=== PATIENT | female | born 1935 | race Caucasian/White ===

== ENCOUNTER 2018-07-21 22:21 | Emergency (ER) | payer OTHER ==
[~2018-07-21] VITALS: Ht 160 cm; Wt 53.1 kg
[~2018-07-21 22:21] MED LIST: AMLODIPINE BESY10 M1 PO; AMLODIPINE10 M1 PO; ASPIR 8181 MG PO; ASPIR-LOW81 M1 PO; ATORVASTATIN CA40 M1 PO; COL100 PO; LAC PO; LIPITOR40 MG PO; LISINOPRIL40 MG PO; MAG PO; MYL80 CH; PLETAL100 MG PO; PRILOSEC40 MG PO; ZES20 PO; ZESTRIL40 MG PO
[2018-07-21 23:51] LABS: BASOPHIL % 0.2 % (0-2); PLATELET COUNT 327 x10^3mcL (130-400)
[2018-07-21 23:54] LABS: RED CELL DISTRIBUTION WIDTH 18.2 % (11.5-14.5)
[2018-07-21 23:58] LABS: CALCIUM 9.1 mg/dL (8.5-10.1); CARBON DIOXIDE 29.8 mmol/L (21-32); CHLORIDE SERUM 104 mmol/L (98-107); CREATININE SERUM 1.5 mg/dL (0.6-1.0); GLUCOSE SERUM 128 mg/dL (74-106); SODIUM SERUM 143 mmol/L (136-145)
[2018-07-22 00:07] LABS: ALBUMIN 3.7 g/dL (3.4-5.0); ALKALINE PHOSPHATASE 98 U/L (46-116); ALT/SGPT 20 U/L (14-59); AST/SGOT 20 U/L (15-37); CHOLESTEROL 202 mg/dL (<200); CHOLESTEROL/HDL RATIO 2.7; HDL CHOLESTEROL 76 mg/dL (40-60); LIPASE 133 IU/L (73-393); TOTAL PROTEIN, SERUM 7.5 g/dL (6.4-8.2); TRIGLYCERIDES 88 mg/dL (<150)
[2018-07-22 00:26] LABS: FREE T4 1.08 ng/dL (0.76-1.46); FREE THYROXINE INDEX 4.3 ug/dL (1.4-4.5); T4(THYROXINE) 12.7 ug/dL (4.7-13.3)
[2018-07-22 00:30] LABS: T3 TOTAL 1.17 ng/mL
[2018-07-22 00:46] LABS: UA SPECIFIC GRAVITY 1.025 (1.005-1.035); microscopic required? YES; urine erythrocyte NEGATIVE (NEGATIVE)
[2018-07-22 01:34] VITALS: BP 130/59
== END 2018-07-22 01:34 | disposition home or self-care (01) ==
LOC: ED 22:21
PROVIDERS: Specialist
DX: R10.13 Epigastric pain (principal); R11.10 Vomiting, unspecified; I10 Essential (primary) hypertension; E78.00 Pure hypercholesterolemia, unspecified
CPT/HCPCS: 83880; 84439; J2405; J3010; J3490; J7030; Q0092

== ENCOUNTER 2018-11-27 00:18 | Inpatient (IN) | payer OTHER ==
[~2018-11-27] VITALS: Ht 160 cm; Wt 42.4 kg
[~2018-11-27 00:18] MED LIST changes: -AMLODIPINE BESY10 M1 PO; +NOR10 PO
--- NOTE | 2018-11-27 00:26 | NUR ---
TO ED BED 8 WITH RN EMAD FOR BEDSIDE TRIAGE.
[2018-11-27 00:32] VITALS: Ht 160 cm; Wt 42.4 kg
--- NOTE | 2018-11-27 00:38 | NUR ---
PT CAME IN FOR ABDOMINAL PAIN AND NAUSEA X 5 HOURS. PT AWAKE, ALERT, RESPIRATIONS EVEN AND UNLABORED. SAFETY PRECAUTIONS IN PLACE
[2018-11-27 01:26] LABS: BASOPHIL % 0.3 % (0-2); PLATELET COUNT 336 x10^3mcL (130-400)
--- NOTE | 2018-11-27 01:29 | NUR ---
PT TAKEN FOR SCAN BY TECH
[2018-11-27 01:31] LABS: RED CELL DISTRIBUTION WIDTH 14.6 % (11.5-14.5)
[2018-11-27 01:32] LABS: CARBON DIOXIDE 28.8 mmol/L (21-32); CHLORIDE SERUM 103 mmol/L (98-107); CREATININE SERUM 1.1 mg/dL (0.6-1.0); GLUCOSE SERUM 119 mg/dL (74-106); POTASSIUM SERUM 3.8 mmol/L (3.5-5.1); SODIUM SERUM 140 mmol/L (136-145)
[2018-11-27 01:37] LABS: ALBUMIN 3.8 g/dL (3.4-5.0); ALKALINE PHOSPHATASE 93 U/L (46-116); ALT/SGPT 24 U/L (14-59); AST/SGOT 28 U/L (15-37); BILIRUBIN TOTAL 0.95 mg/dL (0.20-1.00); LIPASE 96 IU/L (73-393); TOTAL PROTEIN, SERUM 7.9 g/dL (6.4-8.2)
--- NOTE | 2018-11-27 01:42 | NUR ---
PT PROVIDED WITH SPECIMEN CUP AND VERBALIZED FOR NEED TO PROVIDE URINE SAMPLE, PT VERBALIZES UNDERSTANDING AND AMBULATED TO RESTROOM WITH STEADY GAIT. PT AWAKE, ALERT, RESPIRATIONS EVEN AND UNLABORED. SAFETY PRECAUTIONS IN PLACE
[2018-11-27 02:27] LABS: microscopic required? NO
[2018-11-27 02:44] LABS: UA SPECIFIC GRAVITY 1.015 (1.005-1.035); urine erythrocyte NEGATIVE (NEGATIVE)
--- NOTE | 2018-11-27 02:54 | NUR ---
PT CURRENTLY RESTING WITH EYES CLOSED, RESPIRATIONS EVEN AND UNLABORED. SAFETY PRECAUTIONS IN PLACE
--- NOTE | 2018-11-27 04:17 | NUR ---
PT RESTING WITH EYES CLOSED, RESPIRATIONS EVEN AND UNLABORED. SAFETY PRECAUTIONS IN PLACE
[2018-11-27 05:07] LABS: MAGNESIUM 2.3 mg/dL (1.8-2.4)
[2018-11-27 05:11] LABS: CHOLESTEROL/HDL RATIO 2.7
[2018-11-27 05:12] LABS: T3 TOTAL 1.24 ng/mL
[2018-11-27 05:15] LABS: FREE T4 1.18 ng/dL (0.76-1.46); FREE THYROXINE INDEX 3.8 ug/dL (1.4-4.5); T4(THYROXINE) 11.4 ug/dL (4.7-13.3)
[2018-11-27] MEDS ORDERED: NOR10 PO (05:15)
--- NOTE | 2018-11-27 05:18 | NUR ---
REPORT GIVEN TO EDEN WILLAMS, ALL QUESTIONS AND CONCERNS WERE ADDRESSED.
--- NOTE | 2018-11-27 05:30 | NUR ---
RECEIVED PT FROM ER VIA GRISELDA ACCOMPANIED WITH NURSE AND EMT, PT SEEN, ALERT AND ORIENTED, DENIES HEADACHE OR DIZZINESS, TAJIK SPEAKING ONLY, BREATHING EVEN AND UNLABORED, LUNG SOUNDS CLEAR, ON ROOM AIR WITH SPO2:98%, NO RESP DISTRESS NOTED, DENIES CHEST PAIN, SL TO RAC, PULSES PALPABLE, NO EDEMA NOTED, AMBULATORY WITH STEADY GAIT, ABD DISTENDED BUT SOFT WITH HYPOACTIVE BS, NO BM AT THIS TIME, LAST BM 11/26, NGT TO RT NARES, CLAMP AT THIS TIME, AWAITING KUB, VOIDING FREELY UPON ADMISSION, DENIES ANY PAIN OR N&V UPON ADMISSION, NO DISTRESS NOTED, WILL KEEP TO MONITOR.
[2018-11-27 05:47] VITALS: BP 146/45
--- NOTE | 2018-11-27 06:24 | NUR ---
KUB DONE, PENDING RESULT.
--- NOTE | 2018-11-27 07:10 | NUR ---
SEEN AAOX4 IN BED, DAUGTHER AT BEDSIDE, NO RESP DISTRESS NOTED ON ROOM AIR, DENIES ABD PAIN OR NAUSEA AT THIS TIME. ABD SOFT AND FLAT, ACTIVE BS TO LEFT QUADRANT. KEPT NPO. IVF NS TO RAC INFUSING WELL. CALL LIGHT PLACEDW WITHIN EASY REACH, SIDERAILS UP X2.
--- NOTE | 2018-11-27 07:25 | NUR ---
BEDSIDE HANDOFF REPORT DONE WITH SUPIN-RN, ALL QUESTIONS ANSWERED AND CONCERNS ADDRESSED.
--- NOTE | 2018-11-27 07:30 | NUR ---
SEEN AMBULATE TO BATHROOM ASSISTED BY DAUGHTER, NOTED STEADY GAIT.
--- NOTE | 2018-11-27 08:00 | NUR ---
OFF FLOOR FOR SBFT VIA WHEELCHAIR.
[2018-11-27 08:25] LABS: BASOPHIL % 0.2 % (0-2); PLATELET COUNT 305 x10^3mcL (130-400); RED CELL DISTRIBUTION WIDTH 14.4 % (11.5-14.5)
[2018-11-27 08:35] LABS: CALCIUM 8.7 mg/dL (8.5-10.1); CARBON DIOXIDE 28.6 mmol/L (21-32); CHLORIDE SERUM 107 mmol/L (98-107); GLUCOSE SERUM 122 mg/dL (74-106); POTASSIUM SERUM 3.6 mmol/L (3.5-5.1); SODIUM SERUM 144 mmol/L (136-145)
--- NOTE | 2018-11-27 09:45 | NUR ---
BACK FROM SBFT. NO ANY DISTRESS NOTED.
[2018-11-27 09:51] VITALS: BP 111/54
--- NOTE | 2018-11-27 10:19 | NUR ---
SEEN BY DOCTOR MARADIAGA AT BEDSIDE, PATIENT'S [facility], PATIENT AND FAMILY MADE AWARE PLAN OF CARE AND CURRENT CONDITION. NGT TO RIGHT NARE REMOVED BY DOCTOR MARADIAGA.
--- NOTE | 2018-11-27 10:35 | NUR ---
SEEN BY DOCTOR SONIDO GARCES AT BEDSIDE. PATIENT AND PATIENT'S GRANDAUGHTER AT BEDSIDE MADE AWARE OF EGD AND COLONOSCOPE PLAN FOR TOMORROW MORNING. ALL QUESTIONS AND CONCERNS ANSWERED.
--- NOTE | 2018-11-27 12:45 | NUR ---
TOLERATED TO CLEAR LIQUID DIET WELL. DENIES ABDOMINAL PAIN/NAUSEA.
--- NOTE | 2018-11-27 13:41 | NUR ---
Initial Nutrition Assessment- Dx: SBO PMHx: Recurrent SBO, HTN, HLD, and PAD with claudication PSHx: Cholecystectomy, Cataract Removal, , hysterectomy Labs: BG 122H, CHOL 212H, LDLC 119H, HDLC 79H Meds: Miralax, Senokot, NaCl IV, Zofran Diet: Clear liquid diet (ordered for Lunch 11/27) PO Intake: 25% of lunch (tea, jello, broth) Ht: 5'3 Wt: 94 lb, 42 kg BMI: 16.5 kg/m2 (Severely Underweight for age) IBW: 115 lb, 52 kg %IBW: 82 UBW: 120 lb Age: 83 yrs old/Female Food Allergies: NKFA Skin:is intact. Bruno: 21 Edema: none GI: abd is distended w/ hypoactive bowel sounds. Last BM 11/26/18, formed. Pt had NGT to R nares removed today and had SBFT per RN. Pt is Arabic speaking only, grand daughter at bedside translated for us. During RD visit, pt w/ clear liquid lunch tray at bedside, Ensure Clear remained untouched. RD notified pt of clear liquid diet and what to eat/drink first from tray. Pt and grand daughter verbalized understanding. Pt appeared emaciated. NFPE was not performed as pt just arrived back from SBFT and covered w/ blanket. Pt admits to some weight loss d/t decrease PO intake. She reported tolerating chicken soup and benas at home. Bed scale weight 104.7 lb (11/27/18). Pt reported of good appetite but when food is there in front of her, she gets full right away. Pt is not yet meeting adequate nutrition and additional ONS is warranted for wt gain promotion. Trigger received for pt appears underweight/malnourished. Problem with: N: no V: no D: no C: no Problems with: Chewing: none, noted dentures Swallowing: no Current appetite: good Recent wt change: 26 lb wt loss %wt change: 22 Vitamin/Supplement use: MVI, VIT D, VIT C, iron per granddaughter Special diet at home: Chicken soup and beans per pt Physical activity: none Education: pt is notified of current clear liquid diet and given restrictions. Pt denied further education at this time. Estimated Nutritional Needs Based on actual body weight 42 kg Energy: 2470-9104 kcal/d (30-35 kcal/kg-maintenance) Protein: 50-63 g/d (1.2-1.5 g/kg- Geriatric maintenance) Fluid: 8253-8913 ml/d (1 ml/kcal-fluid balance) or per doctor Nutrition Diagnosis 1. Undereweight r/t inadequate nutrient intake 2/2 altered GI function AEB pt's report of poor PO intake >3 days 2/2 abd pain, BMI 16.5 and 82% IBW. Intervention 1. Recommend continuing clear liquid diet per MD orders. 2. Recommend adding Ensure Clear TID while on Clear liquid diet. ONS will provide additional 720 kcal and 24 gm protein daily. Monitor/Evaluate Goal: PO intake at least 75% of estimated needs Monitor: PO intake, Labs, GI function F/U in 2-3 days as high risk (11/29-11/30)
--- NOTE | 2018-11-27 14:49 | NUR ---
SUPREP BOWEL PREP STRUCTED AND STARTED, PATIENT AND MOUSTAPHATER MADE AWARE.
[2018-11-27 17:42] VITALS: BP 131/39
--- NOTE | 2018-11-27 18:29 | NUR ---
HAD MULTIPLE WATERY BM AFTER LAXATIVE AND SUPREP BOWEL PREP (1ST PART) GIVEN, LAST BM WAS LIGHT YELLOWISH WITH SMALL PARTICLES WATERY STOOL NOTED. COMPLAINTS OF CRAMPING PAIN STATED TOLERABLE AT THIS TIME. DENIES NAUSEA. FAMILY AT BEDSIDE AND VERY SUPPORTIVE. IVF NS INFUSING WELL TO RAC IV SITE.
--- NOTE | 2018-11-27 19:46 | NUR ---
PT SEEN, RESTING IN BED, ALERT AND ORIENTED, DENIES HEADACHE OR DIZZINESS, MOSTLY YI SPEAKING, BREATHING EVEN AND UNLABORED, NO SOB, LUNG SOUNDS CLEAR, ON ROOM AIR WITH NO RESP DISTRESS NOTED, MEDSUGR PT, DENIES CHEST PAIN, PULSES PALPABLE, NO EDEMA NOTED, AMBULATORY WITH STEADY GAIT, IVF INFUSING WELL, NPO EXCEPT MEDS, ABD SOFT AND FLAT WITH HYPERACTIVE BS, PT ON BOWEL PREP, VOIDING FREELY, NO DISTRESS NOTED, WILL KEEP TO MONITOR.
[2018-11-27 20:25] VITALS: BP 138/45
[2018-11-28 05:25] VITALS: BP 123/45
--- NOTE | 2018-11-28 05:30 | NUR ---
PT AWAKE AND RESTING IN BED, SLEPT ON AND OFF WHOLE NIGHT, NPO AFTER MN, IVF INFUSING WELL, PT LAST BM WAS CLEAR YELLOW LIQUID, NO N&V NOTED, CONDITON NO CHANGE, NO DISTRESS NOTED, WILL KEEP TO MONITOR.
[2018-11-28 06:22] LABS: CALCIUM 8.4 mg/dL (8.5-10.1); CARBON DIOXIDE 29.2 mmol/L (21-32); CHLORIDE SERUM 112 mmol/L (98-107); GLUCOSE SERUM 86 mg/dL (74-106); POTASSIUM SERUM 3.4 mmol/L (3.5-5.1); SODIUM SERUM 149 mmol/L (136-145)
[2018-11-28 06:26] LABS: BASOPHIL % 0.3 % (0-2); PLATELET COUNT 270 x10^3mcL (130-400)
[2018-11-28 06:59] VITALS: BP 116/50
[2018-11-28 07:01] LABS: RED CELL DISTRIBUTION WIDTH 14.6 % (11.5-14.5)
--- NOTE | 2018-11-28 07:18 | NUR ---
BEDSIDE HANDOFF REPORT DONE WITH CHIDI-RN, ALL QUESTIONS ANSWERED AND CONCERNS ADDRESSED.
--- NOTE | 2018-11-28 07:45 | NUR ---
RECEIVED PT FROM SILVERING DEPARTMENT SUPERVISOR. PT AWAKE, ALERT. A/OX4. PT ON ROOM AIR, LUNGS CTA. NO RESP DISTRESS NOTED. PT DENIES ANY PAIN AT THIS TIME. ACTIVE BOWEL SOUNDS NOTED. IV ACCESS RAC C/D/I INFUSING NS AT 70ML/HR. PERIPHERAL PULSES PALPABLE, NO EDEMA NOTED. PT AMBULATORY, ABLE TO MAKE NEEDS KNOWN. SAFETY MEASURES IN PLACE, BED LOW AND LOCKED. CALL LIGHT WITHIN REACH
--- NOTE | 2018-11-28 08:05 | NUR ---
DR RODRÍGUEZ AWARE PT POTASSIUM 3.4
--- NOTE | 2018-11-28 10:35 | NUR ---
PT TAKEN BY BED TO PROCEDURE. FAMILY AT BEDSIDE. NO ACUTE DISTRESS OR DISCOMFORT NOTED AT THIS TIME.
--- NOTE | 2018-11-28 13:21 | NUR ---
PT OFF THE FLOOR FOR PROCEDURE WHEN FLUIDS DUE, FLUIDS NOW DISCONTINUED.
--- NOTE | 2018-11-28 14:03 | NUR ---
PT BACK ONTO FLOOR FROM PROCEDURE. PT FAMILY AT BEDSIDE. VSS. PT DENIES PAIN OR DIZZINESS AT TIME. PT AWAKE, ALERT. NO DISTRESS OR DISCOMFORT NOTED. SAFETY MEASURES MAINTAINED,
[2018-11-28 14:14] VITALS: BP 135/48
[2018-11-28 14:55] VITALS: BP 126/45
--- NOTE | 2018-11-28 15:33 | NUR ---
PT LYING IN BED AWAKE AND ALERT ON ROOM AIR. NO DISTRESS OR DISCOMFORT NOTED AT THIS TIME. ALL NEEDS MET. SAFETY MEASURES IN PLACE.
--- NOTE | 2018-11-28 18:01 | NUR ---
PT AWAKE AND ALERT. NO ACUTE DISTRESS OR DISCOMFORT NOTED AT THIS TIME. FAMILY AT BEDSIDE. ALL NEEDS TENDED TO THROUGHOUT SHIFT. PT STABLE AT THIS TIME. WILL CONTINUE TO MONITOR AND ENDORSE CARE TO OPTICAL EFFECTS LAYOUT PERSON.
--- NOTE | 2018-11-28 19:35 | NUR ---
RECEIVED REPORT FROM DAY SHIFT RN. PT RESTING IN BED COMFORTABLY. AA&O X4. NO SOB ON ROOM AIR. DENIES N/V/ABD PAIN. NO DISTRESS NOTED. IV TO RAC, INTACT. SAFETY MEASURES IN PLACE. BED IN LOWEST POSITION. SIDE RAILS UP X2. INSTRUCTED PT TO USE THE CALL LIGHT FOR ASSISATNCE. CALL LIGHT WITHIN REACH. FAMILY AT BEDSIDE.
[2018-11-28 20:46] VITALS: BP 125/41
--- NOTE | 2018-11-28 22:00 | NUR ---
K 3.4. DR CACERES MADE AWARE. NO NEW ORDERS AT THIS TIME.
[2018-11-29 05:21] VITALS: BP 124/49
[2018-11-29 06:47] LABS: CALCIUM 8.2 mg/dL (8.5-10.1); CARBON DIOXIDE 25.4 mmol/L (21-32); CHLORIDE SERUM 108 mmol/L (98-107); GLUCOSE SERUM 83 mg/dL (74-106); POTASSIUM SERUM 3.4 mmol/L (3.5-5.1); SODIUM SERUM 144 mmol/L (136-145)
[2018-11-29 06:58] VITALS: BP 127/51
[2018-11-29 07:01] LABS: BASOPHIL % 0.4 % (0-2); PLATELET COUNT 243 x10^3mcL (130-400); RED CELL DISTRIBUTION WIDTH 14.5 % (11.5-14.5)
--- NOTE | 2018-11-29 07:08 | NUR ---
PATIENT IS RESTING COMFORTABLY IN BED. SHE HAS JUST FINISHED USING THE BATHROOM, TOLORATED AMBULATION TO RESTROOM WELL. NO SIGNS OF SOB, OR APPARENT RESPIRATORY DISTRESS. IV IS SALINE LOCKED. HAS IV 20G TO RAC, NO REDNES NOTED. PATIENT DENIES PAIN AT THIS TIME. QUESTIONS AND CONCERNS ADDRESSED, SAFETY PRECAUTIONS MAINTAINED.
--- NOTE | 2018-11-29 07:23 | NUR ---
PT SLEPT WELL THROUGHOUT SHIFT. NO SOB ON ROOM AIR. NO C/O PAIN. NO DISTRESS NOTED. SAFETY MEASURES MAINTAINED. ALL NEEDS ATTENDED TO. CALL LIGHT WITHIN REACH. ENDORSED CONTINUITY OF CARE TO DAYSHIFT RN.
--- NOTE | 2018-11-29 08:05 | NUR ---
PATIENT IS RESTING COMFORTABLY IN BED. DENIES NEEDS AT THIS TIME. SAFETY PRECAUTIONS IN PLACE.
--- NOTE | 2018-11-29 10:15 | NUR ---
DOCTOR AND RESIDENT AT BEDSIDE. NO FURTHER ORDERS AT THIS TIME. POSSIBLE DISCHARGE.
--- NOTE | 2018-11-29 10:30 | NUR ---
MAKE DR BEEBE AWARE THAT PT POTASSIUM IS 3.4. PER DR BEEBE ADMIN POTASSIUM PO.
[2018-11-29] MEDS ORDERED: BIA500 PO (10:55)
[2018-11-29] MEDS ORDERED: AMO500 PO (10:55)
[2018-11-29] MEDS ORDERED: LAC30L PO (10:56)
[2018-11-29] MEDS ORDERED: PRI20 PO (10:56)
--- NOTE | 2018-11-29 12:42 | NUR ---
ADMINISTED AFTERNOON MEDS. PATIENT TOLORATED WELL. GRAND DAUGHTER AT BEDSIDE. PATIENT DENIES OTHER NEEDS AT THIS TIME.
[2018-11-29 12:55] VITALS: BP 127/51
[2018-11-29 13:05] VITALS: BP 127/51
--- NOTE | 2018-11-29 13:36 | NUR ---
D/C HOME INSTRUCTIONS GIVEN TO PT. AND PT.'Martinez SAUCEDA WHO BOTH VERBALIZED UNDERSTANDING OF INSTRUCTIONS. IV H/L TO R AC REMOVED. PRESCRIPTIONS GIVEN.
--- NOTE | 2018-11-29 14:07 | NUR ---
PT. IS BEING DISCHARGED IN STABLE CONDITION VIA WHEELCHAIR. ALL BELONGINGS SENT HOME WITH PT. UPON DISCHARGE.
== END 2018-11-29 14:09 | disposition home or self-care (01) | DRG 384 ==
LOC: ED 00:18 → MU 04:44
PROVIDERS: Emergency Medicine; Internal Medicine Gastroenterology; ADMIT Internal Medicine
PROC: 0DB78ZX Excision of Stomach, Pylorus, Via Natural or Artificial Opening Endoscopic, Diagnostic (ICD-10-PCS; principal; 2018-11-28 13:30)
PROC: 0DJD8ZZ Inspection of Lower Intestinal Tract, Via Natural or Artificial Opening Endoscopic (ICD-10-PCS; 2018-11-28 13:30)
DX: K25.9 Gastric ulcer, unspecified as acute or chronic, without hemorrhage or perforation (principal); K56.690 Other partial intestinal obstruction; A04.8 Other specified bacterial intestinal infections; I10 Essential (primary) hypertension; I73.9 Peripheral vascular disease, unspecified; E78.5 Hyperlipidemia, unspecified; Z68.23 Body mass index [BMI] 23.0-23.9, adult
CPT/HCPCS: 43235; 45378; 84439; A9698; J1200; J1610; J2250; J2270; J2310; J2405; J3010; J3490; J7030; J7040; Q0092; Q9967

== ENCOUNTER 2019-02-12 07:02 | Day surgery (SDC) | payer OTHER ==
[~2019-02-12] VITALS: Ht 160 cm; Wt 54.0 kg
[~2019-02-12 07:02] MED LIST changes: +AMO500 PO; +BIA500 PO; +LAC30L PO; +PRI20 PO
[2019-02-12 07:39] VITALS: BP 145/54
[2019-02-12 11:20] VITALS: BP 127/51
== END 2019-02-12 10:55 | disposition home or self-care (01) ==
LOC: DS 07:02 → OR 08:00 → DS 08:30 → OR 08:30 → DS 10:55
DX: K25.9 Gastric ulcer, unspecified as acute or chronic, without hemorrhage or perforation (principal); K31.811 Angiodysplasia of stomach and duodenum with bleeding; E78.00 Pure hypercholesterolemia, unspecified; Z79.82 Long term (current) use of aspirin; Z79.899 Other long term (current) drug therapy; Z98.49 Cataract extraction status, unspecified eye; Z98.890 Other specified postprocedural states; Z90.49 Acquired absence of other specified parts of digestive tract; Z90.710 Acquired absence of both cervix and uterus
CPT/HCPCS: 43235; J1200; J1610; J2250; J2310; J3010; J3490

== ENCOUNTER 2019-02-20 17:06 | Inpatient (IN) | payer OTHER ==
[~2019-02-20] VITALS: Ht 154.9 cm; Wt 52.6 kg
[2019-02-20 17:12] VITALS: Ht 154.9 cm; Wt 52.6 kg
--- NOTE | 2019-02-20 17:21 | NUR ---
PATIENT BIBA AFTER WITNESSING BRIGHT RED BLOOD IN VOMIT AND DARK BLOODY STOOL TODAY. PATIENT STS SHE IS NOT IN ANY PAIN BUT WAS SURPRISED TO SEE THE BLOOD. NO KO, NO NEURO DEFICITS AAOX4 PERRLA GCS 15 AND PATIENT IS ACTING APPROPRIATELY. DR. GUILLORY AT BEDSIDE PERFORMING MSE.
[2019-02-20] MEDS ORDERED: ATORVASTATIN CA40 M1 PO (17:44)
[2019-02-20] MEDS ORDERED: HYDRALAZINE HCL25 MG PO (17:45)
[2019-02-20] MEDS ORDERED: NOR10 PO (17:45)
[2019-02-20] MEDS ORDERED: MULTI-VITAMINS1 TAB (17:46)
[2019-02-20] MEDS ORDERED: MULTI-VITAMINS1 TAB PO (17:46)
--- NOTE | 2019-02-20 18:00 | NUR ---
PATIENT RESTING AT BEDSIDE IN NAD. BREATHING E/U, BILATERAL CHEST RISE. BED AT LOWEST LEVEL. FAMILY AT BEDSIDE
[2019-02-20 18:04] LABS: BASOPHIL % 0.4 % (0-2); PLATELET COUNT 227 x10^3mcL (130-400)
[2019-02-20 18:10] LABS: CALCIUM 7.5 mg/dL (8.5-10.1); CHLORIDE SERUM 108 mmol/L (98-107); CREATININE SERUM 1.2 mg/dL (0.6-1.0); GLUCOSE SERUM 130 mg/dL (74-106); POTASSIUM SERUM 4.2 mmol/L (3.5-5.1); SODIUM SERUM 140 mmol/L (136-145)
--- NOTE | 2019-02-20 18:11 | NUR ---
XRAY AT BEDSIDE
[2019-02-20 18:14] LABS: ALKALINE PHOSPHATASE 56 U/L (46-116); ALT/SGPT 18 U/L (14-59); AST/SGOT 14 U/L (15-37); BILIRUBIN TOTAL 0.48 mg/dL (0.20-1.00)
[2019-02-20 18:15] LABS: ALBUMIN 2.6 g/dL (3.4-5.0); TOTAL PROTEIN, SERUM 5.6 g/dL (6.4-8.2)
[2019-02-20 18:22] LABS: RED CELL DISTRIBUTION WIDTH 14.8 % (11.5-14.5)
--- NOTE | 2019-02-20 18:39 | NUR ---
PATIENT RESTING AT BEDSIDE IN NAD
--- NOTE | 2019-02-20 19:10 | NUR ---
REPORT GIVEN FROM ALISSA RN, PT RESTING IN BED IN POSITION OF COMFORT. FAMILY AT BEDSIDE. FAMILY STATES "SHE JUST WENT TO THE RESTROOM SO SHES OKAY". PT BREATHING EVEN AND UNLABORED. PT AWAKE AND ALERT. WILL CONTINUE TO MONITOR.
--- NOTE | 2019-02-20 19:11 | NUR ---
REPORT OFF TO ЕКАТЕРИНА SAMANO
--- NOTE | 2019-02-20 20:28 | NUR ---
CALLED TO PT ROOM BY FAMILY REQUESTING TO USE RESTROOM. PT FAMILY STATES "WHEN SHE GOT UP TO THE BATHROOM EARLIER SHE SAID SHE FELT DIZZY, CAN WE JUST GET SOMETHING TO PUT UNDER HER?". PT ASSISTED ONTO BEDPAN AT THIS TIME.
--- NOTE | 2019-02-20 20:42 | NUR ---
REPORT GIVEN TO LETI WILLAMS
--- NOTE | 2019-02-20 21:45 | NUR ---
PT SLEEPING IN GURNEY IN NAD, BREATHING EVEN AND UNLABORED. PT A&0X4, SPEAKING FULL CLEAR SENTENCES. FAMILY AT BEDSIDE. WILL CONTINUE TO MONITOR.
--- NOTE | 2019-02-20 21:53 | NUR ---
RECEIVED PT VIA [facility] FROM E/D, ACCOMPANIED BY RN AND TRANSPORTER. PT A/A/O X 4, CALM, COOPERATIVE. AMBULATORY, NO GAIT OR BALANCE IMPAIRMENT NOTED WALKING FROM [facility] TO BED. ON TELE # 5, HR 89, NSR, DENIES CHEST PAIN OR DISCOMFORT AT THIS TIME. TANK RADIAL AND PEDAL PULSES PRESENT, NON-PITTING EDEMA +1 TO BLE, CAP REFILL < 3 SECS. BUL CLEAR, BLL DIM, CHEST RISING EVENLY, R/A, 96%, NO ACUTE RESPIRATORY DISTRESS NOTED. ABD SOFT, FLAT, NON-TENDER, NORMOACTIVE BOWEL SOUNDS X 4 QUADS, LAST BM 02/20/19, DARK/BLOODY; WEARS UPPER AND LOWER DENTURES. SKIN TURGOR: TENTING. IV SITE LAC 18, CDI. ORIENTED PT TO ROOM, BED CONTROLS, CALL LIGHT SYSTEM. SIDE RAILS UP X 2, BED IN LOW POSITION. WILL ENDORSE TO ЕКАТЕРИНА LANDEROS.
--- NOTE | 2019-02-20 22:00 | NUR ---
PT TRANSFERED TO BED 218B AT THIS TIME IN NAD, BREATHING EVEN AND UNLABORED. PT SLEEPING BUT EASILY AROUSABLE. PT A&0X4, SPEAKING CLEAR SENTENCES. PT ACCOMPANIED BY MYSELF RN AND KP RN. PT FAMILY VERBALIZED UNDERSTANDING OF PLAN OF CARE. PT AMBULATED FROM RNEY TO BED WITH STEADY GAIT. FAMILY AT BEDSIDE. LETI RN AT BEDSIDE TO ASSUME CARE OF PT AT THIS TIME.
[2019-02-20 22:29] VITALS: BP 131/41
--- NOTE | 2019-02-20 22:30 | NUR ---
PREMEDICATED PT WITH TYLENOL AND BENADRYL FOR TRANSFUSION REACTION PROPHYLAXIS. DR. EDWARDS AT BEDSIDE EXPLAINING THE RISK/BENEFITS OF BLOOD TRANSFUSIONS. PT AND GRANDDAUGHTER REPORT ALL QUESTIONS AND CONCERNS ADDRESSED, TRANSFUSION CONSENT SIGNED AND IN CHART. WILL FOLLOW UP WITH BLOOD BANK IN [facility] TO 1 UNIT PRBC'S.
--- NOTE | 2019-02-20 23:20 | NUR ---
BLOOD TRANSFUSION BEGAN, WILL REMAIN AT BEDSIDE FOR THE FIRST 15 MINS. ALL QUESTIONS AND CONCERNS ADDRESSED. PRETRANSFUSION VS @ 2320: BP 116/41 (66), HR 75, T: 97.6, R: 16, O2 SAT" 98% RA.
[2019-02-20 23:47] LABS: microscopic required? NO
[2019-02-20 23:51] LABS: urine erythrocyte NEGATIVE (NEGATIVE)
[2019-02-21 01:50] VITALS: BP 114/45
[2019-02-21 02:21] LABS: BASOPHIL % 0.3 % (0-2); PLATELET COUNT 176 x10^3mcL (130-400); RED CELL DISTRIBUTION WIDTH 14.7 % (11.5-14.5)
[2019-02-21 03:01] LABS: CALCIUM 7.6 mg/dL (8.5-10.1); CARBON DIOXIDE 24.2 mmol/L (21-32); CHLORIDE SERUM 112 mmol/L (98-107); CREATININE SERUM 1.1 mg/dL (0.6-1.0); GLUCOSE SERUM 91 mg/dL (74-106); POTASSIUM SERUM 4.2 mmol/L (3.5-5.1); SODIUM SERUM 142 mmol/L (136-145)
--- NOTE | 2019-02-21 05:15 | NUR ---
PT RESTED IN INTERVALS DURING SHIFT, NO ACUTE CHANGES OCCURRING OVERNIGHT. PT RECEIVED 1 UNIT PRBC, WITH STAT CBC DRAWN AFTER= H/H OF 7.9 (UP FROM 7.3). PT REPORTS FEELING BETTER AFTER THE UNIT. PT AMBULATED ON OWN STRENGTH TO RESTROOM X2. TOLERATING WELL. PT PASSED ON DARK, TARRY STOOL. PT STOOL IN ED (+) GUAIAC. PT NO LONGER VOMITING NOR NAUSEATED. DENIES PAIN AT THIS TIME. ALL COMFORT AND SAFETY MEASURES PROVIDED FOR, CALL LIGHT WITHIN REACH, BED IN LOWEST POSITION, WILL CONTINUE TO MONITOR.
[2019-02-21 05:25] VITALS: BP 132/49
--- NOTE | 2019-02-21 07:30 | NUR ---
PATIENT RESTING IN BED, NO ACUTE DISTRESS NOTED. PATIENT DENIES PAIN. TELE MONITOR IN PLACE. PATIENT DENIES PAIN. EDEMA NOTED TO BLE, EDUCATED PATIENT TO MAINTAIN BLE ELEVATED. PATIENT DENIES SOB, ON ROOM AIR. PATIENT C/O PREVIOUS STOOL BEING DARK AND BLOODY, HAVE NOT WITTNESS ANY BLOODY STOOLS AT THIS TIME. NS IV INFUSING TO LAC AT 70ML/HR, IV SITE CDI & PATENT, NO S/S OF INFILTRATION. CALL LIGHT WITHIN REACH, BED IN LOW POSITION, WILL CONTINUE TO MONITOR FOR CHANGES.
--- NOTE | 2019-02-21 07:35 | NUR ---
ENDORSED ALL CARE TO DAYSHIFT NURSE, ALL QUESTIONS AND CONCERNS ADDRESSED. ALL COMFORT AND SAFETY MEASURES PROVIDED FOR, CALL LIGHT WITHIN REACH, BED IN LOWEST POSITION.
[2019-02-21 07:56] LABS: CALCIUM 8.2 mg/dL (8.5-10.1); CARBON DIOXIDE 24.8 mmol/L (21-32); CHLORIDE SERUM 111 mmol/L (98-107); GLUCOSE SERUM 82 mg/dL (74-106); SODIUM SERUM 143 mmol/L (136-145)
[2019-02-21 08:00] LABS: BASOPHIL % 0.5 % (0-2); PLATELET COUNT 204 x10^3mcL (130-400)
[2019-02-21 08:07] VITALS: BP 125/43
--- NOTE | 2019-02-21 08:26 | NUR ---
PHYSICAL THERAPY AT BEDSIDE.
--- NOTE | 2019-02-21 11:35 | NUR ---
PATIENT WENT DOWN FOR EGD, PATIENT TAKEN DOWN VIA GURNEY. IV TO LAC SALINE LOCK AT THIS TIME.
--- NOTE | 2019-02-21 12:40 | NUR ---
REPORT RECEIVED FROM GI NURSE. PATIENT ARRIVED TO THE FLOOR VIA GURNEY. PATIENT IS SLEEPY AT THIS TIME, NO ACUTE DISTRESS NOTED AT THIS TIME. PATIENT VITAL SIGNS: BP 101/38 HR 57 TEMP 97.4 RR 16 PULSE OX 96% ON ROOM AIR. FAMILY AT BEDSIDE, WILL CONTINUE TO MONITOR FOR CHANGES.
[2019-02-21 12:47] VITALS: BP 101/38
[2019-02-21 16:03] VITALS: BP 120/42
--- NOTE | 2019-02-21 18:25 | NUR ---
PATIENT RESTING IN BED, NO ACUTE DISTRESS NOTED. PATIENT DENIES PAIN AT THIS TIME. TELE MOITOR IN PLACE. NO ACUTE CHANGES THROUGH OUT SHIFT, PATIENT IS STABLE. NS IV INFUSING TO LAC AT 100ML/HR, IV SITE CDI & PATENT, NO S/S OF INFILTRATION. CALL LIGHT WITHIN REACH, BED IN LOW POSITION, WILL ENDORSE REPORT TO NIGHT RN.
--- NOTE | 2019-02-21 19:30 | NUR ---
RECEIVED PT RESTING IN BED, NO ACUTE DISTRESS NOTED. PT AOX4, DENIES HENDERSON/DIZZINESS. PT S/P EGD TODAY 02/21 WITH CLOSURE OF ULCER USING CLIPS. PER DAYSHIFT, PT HAS A BLOODY STOOL AFTER THE EGD, PER DR. SEGOVIA, IT IS NORMAL FOR OCCASIONAL BLEEDING BUT TO REPORT CONTINUOUS/ INCREASED BLEEDING OF BRIGHT RED BLOOD. PT DENIES DIZZINESS/LIGHTHEADEDNESS. AMBULATORY, DENIES DIZZINESS UPON AMBULATION. TELE # 5, HR 68, NSR, DENIES CHEST PAIN OR DISCOMFORT AT THIS TIME. TANK RADIAL AND PEDAL PULSES PRESENT, TRACE EDEMA NOTED TO BLE, CAP REFILL < 3 SECS. RESP EVEN AND UNLABORED ON RA, DENIES SOB. DIM BILAT BASES. NO RESPIRATORY DISTRESS NOTED. ABD SOFT, FLAT, NON-TENDER, NORMOACTIVE BOWEL SOUNDS X 4 QUADS, LAST BM 02/21/19, BLOODY RED. IV SITE LAC 18, CDI. NO REDNESS, SWELLING OR PAIN NOTED. ALL COMFORT AND SAFETY MEASURES PROVIDED FOR, CALL LIGHT WITHIN REACH, BED IN LOWEST POSITION, WILL CONTINUE TO MONITOR.
[2019-02-21 20:29] VITALS: BP 120/46
--- NOTE | 2019-02-22 02:15 | NUR ---
ASSUMED CARE OF PATIENT AT THIS TIME. PATIENT IS RESTING COMFORTABLE IN BED, FAMILY AT BEDSIDE. DENIES PAIN. IV INFUSING WITHOUT ERYTHEMA OR INFILTRATION. BED LOCKED AND IN LWOEST POSIITON. CALL LIGHT WITHIN REACH.
--- NOTE | 2019-02-22 02:15 | NUR ---
ENDORSED CARE TO TANVIR WILLAMS FOR CONTINUITY OF CARE. ALL QUESTIONS AND CONCERNS ADDRESSED. PT RESTING IN BED, NO ACUTE DISTRESS NOTED. RESP EVEN AND UNLABORED, FAMILY AT BEDSIDE. EDUCATED FAMILY MEMBER NOT TO FLUSH TOLIET IF PT HAS BOWEL MOVEMENT SO WE CAN ASSESS PT. PT VERBALIZES UNDERSTANDING, CALL LIGHT WITHIN REACH, BED IN LOWEST POSITION. ALL SAFETY MEASURES PROVIDED FOR.
[2019-02-22 05:41] VITALS: BP 113/49
--- NOTE | 2019-02-22 06:46 | NUR ---
NO SIGNIFICANT EVENTS THIS SHIFT. PATIENT IS COMFORTABLE IN BED. IV INFUSING WELL. TELE 5 NSR. BED LOCKED AND IN LOWEST POSIITON. WILL ENDORSE CARE TO DAYSHIFT NURSE.
[2019-02-22 07:26] LABS: CALCIUM 7.7 mg/dL (8.5-10.1); CARBON DIOXIDE 25.5 mmol/L (21-32); CHLORIDE SERUM 113 mmol/L (98-107); GLUCOSE SERUM 87 mg/dL (74-106); MAGNESIUM 1.9 mg/dL (1.8-2.4); PHOSPHOROUS 2.6 mg/dL (2.5-4.9); SODIUM SERUM 146 mmol/L (136-145)
[2019-02-22 07:47] LABS: BASOPHIL % 0.6 % (0-2); PLATELET COUNT 174 x10^3mcL (130-400); RED CELL DISTRIBUTION WIDTH 15.1 % (11.5-14.5)
--- NOTE | 2019-02-22 08:00 | NUR ---
SHIFT ASSESSMENT DONE. PATIENT A/A/OX4; ARMENIAN SPEAKING. TELE#5; SR; HR=69. BREATHING SOUND CLEAR TANK. ABD FLAT/SOFT. BOWEL SOUND ACTIVE. FINISHED 100% OF FULL LIQUID DIET BREAKFAST. NO N/V. REPORTED BLOODY STOOL SEEN YESTERDAY. NO BM LAST SHIFT. STOOL SPECIMEN CONTAINER PLACED ON TOILET. ASKED PATIENT AND FAMILY TO REPORT AFTER BM AND LET NURSE TO CHECK STOOL. IVF OF NS 100CC/HR. IV SITE TO LAC INTACT. DAUGHTER AT BED SIDE. CALL LIGHT IN REACH.
[2019-02-22 08:04] LABS: IRON 25 ug/dL (50-170); TOTAL IRON BINDING CAPACITY 287 ug/dL (250-450)
--- NOTE | 2019-02-22 08:51 | NUR ---
Nutrition note: Consult received for severe malnutrition on 02/23/19. Pt. admitted with GI bleed per H and P documentations associated with 2 episodes of hematemesis. Based on nutritional screening, pt. does not meet criteria for high risk category and will be assessed as moderate risk with IA due 02/25-02/27/29.
[2019-02-22 09:09] VITALS: BP 126/48
--- NOTE | 2019-02-22 10:30 | NUR ---
DR. SEGOVIA CAME TO SEE PATIENT. NEW ORDER WRITTEN.
[2019-02-22 13:30] VITALS: BP 117/42
[2019-02-22 17:19] VITALS: BP 138/56
--- NOTE | 2019-02-22 19:00 | NUR ---
TOLERATED REGULAR DIET LUNCH AND DINNER. DENIED ABD PAIN. HAD BM X1, 5GM OF FORMED BLACK STOOL. VOID FREELY. IVF OF NS 50CC/HR. ENDORSED CARE TO [facility] NURSE.
--- NOTE | 2019-02-22 19:45 | NUR ---
RECEIVED REPORT FROM DAY SHIFT RN. PT RESTING IN BED. AA&O X4. NO SOB ON ROOM AIR. BREATHING EVEN AND UNLABORED. NO C/O PAIN. NO DISTRESS NOTED. IV TO LAC, NS INFUSING. SAFETY MEASURES IN PLACE. BED IN LOWEST POSITION. SIDE RAILS UP X2. DEMONSTRATED HOW TO USE THE CALL LIGHT. CALL LIGHT WITHIN EASY REACH. FAMILY AT BEDSIDE.
[2019-02-22 21:10] VITALS: BP 117/41
--- NOTE | 2019-02-23 01:00 | NUR ---
PT RESTING WITH EYES CLOSED. BREATHING EVEN AND UNLABORED. NO FACIAL GRIMACING. CALL LIGHT WITHIN REACH. WILL CONTINUE TO MONITOR.
[2019-02-23 04:52] VITALS: BP 117/49
--- NOTE | 2019-02-23 05:06 | NUR ---
PT SLEPT WELL THROUGHOUT SHIFT. NO SOB ON ROOM AIR. NO C/O PAIN. NO ACUTE DISTRESS NOTED. SAFETY MEASURES MAINTAINED. ALL NEEDS ATTENDED TO. CALL LIGHT WITHIN REACH. WILL ENDORSE CONTINUITY OF CARE TO ONCOMING RN.
[2019-02-23 06:49] LABS: CALCIUM 8.1 mg/dL (8.5-10.1); CARBON DIOXIDE 28.3 mmol/L (21-32); CHLORIDE SERUM 113 mmol/L (98-107); GLUCOSE SERUM 93 mg/dL (74-106); MAGNESIUM 1.9 mg/dL (1.8-2.4); PHOSPHOROUS 2.8 mg/dL (2.5-4.9); POTASSIUM SERUM 3.9 mmol/L (3.5-5.1); SODIUM SERUM 147 mmol/L (136-145)
--- NOTE | 2019-02-23 07:30 | NUR ---
ALERT AND ORIENTED. SITTING UP IN BED READY FOR BREAKFAST. BREATHING FREELY ON RA. DENIES ANY PAIN. TELE # 5 NSR. NS INFUSING 50 CC HOUR TO LEFT AC. INDEPENDENT WITH ADL'S. NO ASSISTIVE DEVICES. ARMENIAN SPEAKING, GRAND DAUGHTER AT BEDSIDE AND HELPS WITH TRANSLATION. BRP. VSS. CALL LIGHT WITHIN REACH.
[2019-02-23 09:08] VITALS: BP 134/52
[2019-02-23 09:08] LABS: BASOPHIL % 0.5 % (0-2); PLATELET COUNT 192 x10^3mcL (130-400)
[2019-02-23 09:09] LABS: RED CELL DISTRIBUTION WIDTH 15.1 % (11.5-14.5)
--- NOTE | 2019-02-23 10:42 | NUR ---
Reed. NOTES PATIENT REFUSED TO BE SEEN BY P.T. PER FAMILY PATIENT HAD BEEN UP AND GOING TO THE RESTROOM AND BACK TO BED ON HER OWN, PRIOR TO ENTERING ROOM PATIENT JUST HAD RETURN TO BED FROM THE RESTROOM USING IV POLE.
--- NOTE | 2019-02-23 11:11 | NUR ---
FORMED VERY DARK BM WITH SOME BLOOD NOTED IN TOILET.
[2019-02-23 13:30] VITALS: BP 138/54
--- NOTE | 2019-02-23 16:20 | NUR ---
PHYSICAL THERAPY DAILY NOTES CO-SIGN All documentation done by the Director Of Product Development for 02/23/19 has been reviewed. I agree with the documentation. Reviewed/Co-Signed by: Susana Mello PT Documentation Done by:NICK OLSON PTA
[2019-02-23 16:47] VITALS: BP 126/55
[2019-02-23 16:58] VITALS: BP 126/55
--- NOTE | 2019-02-23 17:09 | NUR ---
3RD AND 4TH STOOLS TODAY NO BLOOD SHOWING. LAST BM LIGHT GREEN. ALL 4 STOOLS FORMED.
[2019-02-23] MEDS ORDERED: PRI20 PO (17:47)
--- NOTE | 2019-02-23 18:50 | NUR ---
DC'D TO HOME. IV DC'D. TELE 5 RETURNED TO TELE STATION. PRESCRIPTIONS GIVEN FOR OMEPRAZOLE, FERROUS SULFATE AND FOLIC ACID. TO F/U W/ DR. Vincent GARCES. ALL DC INSTRUCTIONS REVIEWED WITH PTS DTR AND GRAND DAUGHTER. SIGNED BY DTR.
== END 2019-02-23 18:56 | disposition home or self-care (01) | DRG 377 ==
LOC: ED 17:06 → DU 20:09
PROVIDERS: Internal Medicine; Specialist; ADMIT Internal Medicine
PROC: 0W3P8ZZ Control Bleeding in Gastrointestinal Tract, Via Natural or Artificial Opening Endoscopic (ICD-10-PCS; principal; 2019-02-21 12:00)
PROC: 0DB68ZX Excision of Stomach, Via Natural or Artificial Opening Endoscopic, Diagnostic (ICD-10-PCS; 2019-02-21 12:00)
DX: K25.4 Chronic or unspecified gastric ulcer with hemorrhage (principal); E43 Unspecified severe protein-calorie malnutrition; N17.0 Acute kidney failure with tubular necrosis; D62 Acute posthemorrhagic anemia; I10 Essential (primary) hypertension; E11.9 Type 2 diabetes mellitus without complications; E78.5 Hyperlipidemia, unspecified; Z68.20 Body mass index [BMI] 20.0-20.9, adult; Z79.84 Long term (current) use of oral hypoglycemic drugs
CPT/HCPCS: 43235; 97116-GP; C9113; G0378; J1200; J1610; J2250; J2310; J3010; J3490; J7030; J7050; P9016; Q0092; Q0163

== ENCOUNTER 2019-05-06 10:52 | Emergency (ER) | payer OTHER ==
[~2019-05-06] VITALS: Ht 154.9 cm; Wt 51.3 kg
[~2019-05-06 10:52] MED LIST changes: +HYDRALAZINE HCL25 MG PO; +MULTI-VITAMINS1 TAB; +MULTI-VITAMINS1 TAB PO
[2019-05-06 10:58] VITALS: BP 151/47; Ht 154.9 cm; Wt 51.3 kg
== END 2019-05-06 12:56 | disposition home or self-care (01) ==
LOC: ED 10:52
DX: S01.81XA Laceration without foreign body of other part of head, initial encounter (principal); S01.21XA Laceration without foreign body of nose, initial encounter; I10 Essential (primary) hypertension; E78.00 Pure hypercholesterolemia, unspecified; W01.198A Fall on same level from slipping, tripping and stumbling with subsequent striking against other object, initial encounter; Y93.89 Activity, other specified; Y92.89 Other specified places as the place of occurrence of the external cause; Y99.8 Other external cause status
CPT/HCPCS: 90715; J2001